=== PATIENT | female | born 1980 | race African-American/Black ===

== ENCOUNTER 2020-11-19 21:27 | Emergency (ER) | payer OTHER ==
[~2020-11-19] VITALS: Ht 162.6 cm; Wt 94.3 kg
[2020-11-19] MEDS ORDERED: VISTARIL 25 MG25 M1 PO (21:47)
[2020-11-19] MEDS ORDERED: TORADOL 10 MG T10 MG PO (23:43)
[2020-11-19] MEDS ORDERED: TRAMADOL 50 MG50 MG PO (23:43)
[2020-11-19 23:54] VITALS: BP 109/58
== END 2020-11-19 23:54 | disposition home or self-care (01) ==
LOC: M.ERS 21:27
DX: S46.911A Strain of unspecified muscle, fascia and tendon at shoulder and upper arm level, right arm, initial encounter (principal); F41.9 Anxiety disorder, unspecified; F17.210 Nicotine dependence, cigarettes, uncomplicated; Z79.899 Other long term (current) drug therapy; X50.0XXA Overexertion from strenuous movement or load, initial encounter; Y93.89 Activity, other specified; Y92.69 Other specified industrial and construction area as the place of occurrence of the external cause; Y99.8 Other external cause status

== ENCOUNTER 2020-12-04 07:42 | Emergency (ER) | payer OTHER ==
[~2020-12-04] VITALS: Ht 162.6 cm; Wt 86.2 kg
[~2020-12-04 07:42] MED LIST: TORADOL 10 MG T10 MG PO; TRAMADOL 50 MG50 MG PO; VISTARIL 25 MG25 M1 PO
[2020-12-04] MEDS ORDERED: HYDROCODON-ACE1 EAC7 PO (08:14)
[2020-12-04] MEDS ORDERED: PENICILLIN VK500 MG PO (08:14)
[2020-12-04 08:31] VITALS: BP 142/95
== END 2020-12-04 08:32 | disposition home or self-care (01) ==
LOC: M.ERS 07:42
DX: K08.89 Other specified disorders of teeth and supporting structures (principal); G89.18 Other acute postprocedural pain

== ENCOUNTER 2021-06-26 16:34 | Emergency (ER) | payer OTHER ==
[~2021-06-26] VITALS: Ht 162.6 cm; Wt 140.6 kg
[~2021-06-26 16:34] MED LIST changes: +HYDROCODON-ACE1 EAC7 PO; +PENICILLIN VK500 MG PO
[2021-06-26] MEDS ORDERED: IBUPROFEN 800800 M1 PO (20:42)
[2021-06-26] MEDS ORDERED: FLEXERIL PO (20:42)
[2021-06-26] MEDS ORDERED: LIDODERM1 EACH TOP (20:42)
[2021-06-26 20:49] VITALS: BP 128/54
== END 2021-06-26 20:49 | disposition home or self-care (01) ==
LOC: M.ERS 16:34
DX: M54.59 Other low back pain (principal); F41.9 Anxiety disorder, unspecified; F17.210 Nicotine dependence, cigarettes, uncomplicated